=== PATIENT | male | born 1965 | race Caucasian/White ===

== ENCOUNTER 2017-12-16 09:04 | Emergency (ER) | payer OTHER ==
[~2017-12-16] VITALS: Ht 172.7 cm; Wt 63.5 kg
[~2017-12-16 09:04] MED LIST: ACET325; ALBIPROI INH; AZIT500 PO; Bactrim 400-801 EACH PO; Bactrim Ds Tab1 EACH PO; CEPH500 PO; Cleocin HCl300 MG PO; DIPATR PO; FLUC150A PO; IBUP800 PO; K-Dur 20 meq T20 MEQ PO; LIDO2TG30 TOP; LOPE2C PO; LORA1 PO; Naprosyn500 MG PO; Norco 5-325 Ta1 EACH PO; Norco 7.5-3251 EACH PO; PRED20 PO; Percocet 5-3251 EACH PO; Roxicodone5 MG PO; SULTRIDS PO; TIVICAY50 MG PO; Truvada Tablet1 EACH PO; Ultram50 MG PO; Vibramycin100 MG PO; Zofran4 MG PO; [UNRECOGNIZED DRUG - OTHER]; [UNRECOGNIZED DRUG - REMARK]
[2017-12-16] MEDS ORDERED: Norco 5-325 Ta1 EACH PO (09:30)
[2017-12-16] MEDS ORDERED: CEPH500 PO (09:30)
== END 2017-12-16 09:42 | disposition home or self-care (01) ==
LOC: ER 09:04
DX: S61.031A Puncture wound without foreign body of right thumb without damage to nail, initial encounter (principal); W45.8XXA Other foreign body or object entering through skin, initial encounter; Z88.5 Allergy status to narcotic agent; Z79.899 Other long term (current) drug therapy; F17.210 Nicotine dependence, cigarettes, uncomplicated
CPT/HCPCS: 99283

== ENCOUNTER 2018-06-10 23:13 | Inpatient (IN) | payer OTHER ==
[~2018-06-10] VITALS: Ht 172.7 cm; Wt 62.1 kg
[~2018-06-10 23:13] MED LIST changes: +CYCL10 PO; +Keflex500 MG PO
[2018-06-11 00:44] LABS: BASOPHILS ABSOLUTE AUTO 0.03 K/mm3 (0.00-0.23); BASOPHILS PERCENT AUTO 1 % (0-2); EOSINOPHILS PERCENT AUTO 2 % (0-6); Hematocrit 37.2 % (37.0-53.0); Hemoglobin 12.3 g/dL (13.5-17.5); IMMATURE GRAN ABSOLUTE AUTO 0.04 K/mm3 (0.00-0.10); IMMATURE GRAN PERCENT AUTO 1 % (0-1); LYMPHOCYTES ABSOLUTE AUTO 0.49 K/mm3 (0.84-5.20); LYMPHOCYTES PERCENT AUTO 8 % (21-46); MONOCYTES ABSOLUTE AUTO 0.29 K/mm3 (0.16-1.47); MONOCYTES PERCENT AUTO 5 % (4-13); Mean Corpuscular HGB 30.1 pg (26.0-34.0); Mean Corpuscular HGB Conc 33.1 g/dL (31.5-36.5); Mean Corpuscular Volume 91 fL (80-100); NEUTROPHILS ABSOLUTE AUTO 5.49 K/mm3 (1.96-9.15); NEUTROPHILS PERCENT AUTO 85 % (41-73); Platelet Count 211 K/mm3 (150-400); RDW Coefficient Variation 13.1 % (11.7-14.2); RDW Standard Deviation 43.9 fL (35.1-46.3); Red Blood Cell Count 4.08 M/mm3 (4.30-5.90); White Blood Cell Count 6.44 K/mm3 (4.00-11.30)
[2018-06-11 01:03] LABS: Alanine Aminotransfer (ALT/SGP 42 U/L (12-78); Albumin, Blood 2.5 g/dL (3.4-5.0); Albumin/Globulin Ratio 0.5 (0.8-1.8); Alk Phos 195 U/L (50-136); Anion Gap 6 mmol/L (6-16); Aspartate Aminotrans (AST/SGOT 179 U/L (12-37); Bilirubin, Total 0.6 mg/dL (0.1-1.0); Blood Urea Nitrogen 9 mg/dL (8-24); Bun/Creatinine Ratio 14.4 (12.0-20.0); CO2, Blood 27 mmol/L (21-32); Calcium, Blood 7.8 mg/dL (8.5-10.1); Chloride, Blood 104 mmol/L (98-108); Creatinine, Blood 0.63 mg/dL (0.60-1.20); Glomerular Filtration Rate >60 (60-); Glucose, Blood 90 mg/dL (70-99); Potassium, Blood 3.9 mmol/L (3.5-5.5); Sodium, Blood 137 mmol/L (136-145); Total Protein, Blood 7.5 g/dL (6.4-8.2)
[2018-06-11 01:27] LABS: Source, Urine Clean Catch
[2018-06-11 01:32] LABS: Bilirubin, Urine Neg (Neg); Blood, Urine Neg (Neg); Glucose Qualitative, Urine Neg (Neg); Ketones, Urine Neg (Neg); Leukocyte Esterase, Urine 1+ (Neg); Nitrite, Urine Neg (Neg); Protein, Urine Neg (Neg); Specific Gravity, Urine 1.005 (1.003-1.022); Urobilinogen, Urine 2+ (Normal)
[2018-06-11 01:49] LABS: Appearance, Urine Clear (Clear); Bacteria Not Seen /hpf; Color, Urine Yellow (P-Yellow); Mucus Light ({null, 0-Heavy}); Red Blood Cells, Urine Not Seen /hpf (0-2); Squamous Epithelial Cells Not Seen /hpf (Few); White Blood Cells, Urine Rare /hpf (0-5)
--- NOTE | 2018-06-11 02:18 | NUR ---
CALLED DR SANTANA REGARDING PATIENT'S 103.7 TEMP AND RESP OF 26, DR CROWE PT VISUALLY APPEARED STABLE TO HIM SO HE IS OK FOR MEDICAL FLOOR. SPOKE WITH RAND TACKER, SILVANA SHERIDAN, AND PRIMARY RN TAKING PATIENT INTO ROOM 343.
--- NOTE | 2018-06-11 05:00 | NUR ---
SHIFT SUMMARY PT WAS A NEW ADMIT, ARRIVING ON THE FLOOR AT 0339. PT WAS ADMITTED FOR A FEVER, AND IS ON AIRBORNE PRECAUTION FOR TB RULE OUT. PT IS A&O X 4, AND INDEPENDENT. ON ARRIVAL, PT WAS STILL RUNNING A FEVER AT 101.2, BUT REFUSED ICE PACKS. PT ALSO REFUSED TO TAKE OFF HIS STREET CLOTHES, AND SO A THOROUGH SKIN ASSESSMENT WAS UNABLE TO BE COMPLETED. PT'S BP WAS ALSO LOW ON ADMISSION AT 98/64. ALL OTHER VITALS STABLE. PT DENIED COMPLAINTS OF PAIN, NAUSEA OR SOB. NO OTHER ACUTE CHANGES IN PT CONDITION NOTED SINCE ARRIVAL. WILL CONTINUE TO MONITOR AND TREAT PER EMAR UNTIL HAND OFF TO DAY SHIFT.
[2018-06-11 07:26] LABS: U Amphetamine Screen DETECTED; U Barbituate Screen Not Detected; U Benzodiazapine Screen Not Detected; U Buprenorphine Screen DETECTED; U Cannabinoids Screen Not Detected; U Cocaine Screen Not Detected; U Methadone Screen Not Detected; U Methamphetamine Screen DETECTED; U Opiates Screen Not Detected; U Oxycodone Screen Not Detected; U Phencyclidine Screen Not Detected; U Propoxyphene Screen Not Detected
[2018-06-11 09:27] LABS: BASOPHILS ABSOLUTE AUTO 0.02 K/mm3 (0.00-0.23); BASOPHILS PERCENT AUTO 0 % (0-2); EOSINOPHILS ABSOLUTE AUTO 0.08 K/mm3 (0.00-0.68); EOSINOPHILS PERCENT AUTO 1 % (0-6); Hematocrit 36.9 % (37.0-53.0); IMMATURE GRAN ABSOLUTE AUTO 0.09 K/mm3 (0.00-0.10); IMMATURE GRAN PERCENT AUTO 1 % (0-1); LYMPHOCYTES ABSOLUTE AUTO 1.13 K/mm3 (0.84-5.20); LYMPHOCYTES PERCENT AUTO 13 % (21-46); MONOCYTES ABSOLUTE AUTO 0.53 K/mm3 (0.16-1.47); MONOCYTES PERCENT AUTO 6 % (4-13); Mean Corpuscular HGB 29.6 pg (26.0-34.0); Mean Corpuscular HGB Conc 32.5 g/dL (31.5-36.5); Mean Corpuscular Volume 91 fL (80-100); Mean Platelet Volume 9.6 fL (9.1-12.4); NEUTROPHILS ABSOLUTE AUTO 6.85 K/mm3 (1.96-9.15); NEUTROPHILS PERCENT AUTO 79 % (41-73); Platelet Count 171 K/mm3 (150-400); RDW Coefficient Variation 13.4 % (11.7-14.2); RDW Standard Deviation 45.2 fL (35.1-46.3); Red Blood Cell Count 4.06 M/mm3 (4.30-5.90)
[2018-06-11 09:41] LABS: Alanine Aminotransfer (ALT/SGP 36 U/L (12-78); Albumin, Blood 2.1 g/dL (3.4-5.0); Albumin/Globulin Ratio 0.5 (0.8-1.8); Alk Phos 156 U/L (50-136); Anion Gap 7 mmol/L (6-16); Aspartate Aminotrans (AST/SGOT 164 U/L (12-37); Bilirubin, Total 0.6 mg/dL (0.1-1.0); Blood Urea Nitrogen 7 mg/dL (8-24); Bun/Creatinine Ratio 11.9 (12.0-20.0); CO2, Blood 23 mmol/L (21-32); Calcium, Blood 7.5 mg/dL (8.5-10.1); Chloride, Blood 110 mmol/L (98-108); Creatinine, Blood 0.59 mg/dL (0.60-1.20); Globulin, Blood 4.5 g/dL (2.2-4.0); Glomerular Filtration Rate >60 (60-); Glucose, Blood 109 mg/dL (70-99); Potassium, Blood 3.5 mmol/L (3.5-5.5); Sodium, Blood 140 mmol/L (136-145); Total Protein, Blood 6.6 g/dL (6.4-8.2)
[2018-06-11 14:40] LABS: Adenovirus Not Detected (NOT DETECT); Bordetella pertussis Not Detected (NOT DETECT); Chlamydophila pneumoniae Not Detected (NOT DETECT); Coronavirus 229E Not Detected (NOT DETECT); Coronavirus HKU1 Not Detected (NOT DETECT); Coronavirus NL63 Not Detected (NOT DETECT); Coronavirus OC43 Not Detected (NOT DETECT); Human Metapneumovirus Not Detected (NOT DETECT); Influenza A/2009-H1 Not Detected (NOT DETECT); Influenza A/H1 Not Detected (NOT DETECT); Influenza A/H3 Not Detected (NOT DETECT); Influenza B Not Detected (NOT DETECT); Mycoplasma pneumoniae Not Detected (NOT DETECT); Parainfluenza Virus 1 Not Detected (NOT DETECT); Parainfluenza Virus 2 Not Detected (NOT DETECT); Parainfluenza Virus 3 Not Detected (NOT DETECT); Parainfluenza Virus 4 Not Detected (NOT DETECT); Respiratory Syncytial Virus Not Detected (NOT DETECT)
[2018-06-11 16:35] LABS: Human Rhinovirus/Enterovirus Detected (NOT DETECT); Influenza A Not Detected (NOT DETECT)
--- NOTE | 2018-06-11 18:46 | NUR ---
PT IS A/OX3, UP IND IN HIS ROOM, THE DENIED ANY PAIN THIS SHIFT, THE PT APPEARS TO BE BREATHING EASILY ON RA, THE WAS UP THIS EVENING X1 TO SMOKE, THE PT REMAINED AFEBRILE T/O THE DAY, WAS MOSTLY COOPERATIVE WITH ENCOURAGEMENT, CALL LIGHT IN REACH, BED IN THE LOW POSITION
--- NOTE | 2018-06-12 02:19 | NUR ---
PT REFUSING TO LET LAB DRAW MORNING LABS. VANCO TROUGH DUE TO BE DRAWN. PHARMACY AND HOSPITALIST NOTIFIED. HOSPITALIST WANTS LAB TO TRY DRAW PT LATER IN THE MORNING DURING MORNING ROUNDS. PHARMACY NOTIFIED OF THIS.
--- NOTE | 2018-06-12 05:31 | NUR ---
SHIFT SUMMARY PT CONTINUES TO REFUSE LAB DRAWS AND STATES HE DOESN'T WANT THE IV VANCOMYCIN IF HE HAS TO HAVE LABS DRAWN. PHARMACY NOTIFIED AND HOSPITALIST NOTIFIED, ORDERS RECEIVED. PT AFEBRILE DURING THE NIGHT, DENIES ANY C/O'S PAIN. HAS SLEPT FAIR. PT ALSO QUESTIONING WHY HE IS RECEIVING SO MANY IV ANTIBIOTICS, EDUCATED ON REASONS WHY. STILL REFUSES TO HAVE LABS DRAWN AFTER VERBAL EDUCATION. WILL CONTINUE TO MONITOR.
[2018-06-12] MEDS ORDERED: AZIT250 PO (14:55)
--- NOTE | 2018-06-12 15:16 | NUR ---
DISCHARGE NOTE PT'S IV DC'D WNL. HARDCOPY AND VERBAL DISCHARGE INSTRUCTIONS PROVIDED TO PT. PT INSTRUCTED TO FOLLOW UP WITH PCP WITHIN ONE WEEK, PT COULD NOT RECALL WHO HIS PCP WAS. PT'S DISCHARGE MEDICATION FAXED TO PREFERRED PHARMACY. PT HAD NO FURTHER QUESTIONS.
[2018-06-12 21:06] LABS: % CD 4 POS. LYMPH. 0.7 % (30.8-58.5); ABSOLUTE CD 4 HELPER 8 /uL (359-1519); BASOS 0 % (Not Estab.); EOS 1 % (Not Estab.); EOS (ABSOLUTE) 0.1 x10E3/uL (0.0-0.4); HEMATOCRIT 35.5 % (37.5-51.0); IMMATURE GRANULOCYTES 1 % (Not Estab.); LYMPHS 12 % (Not Estab.); LYMPHS (ABSOLUTE) 1.1 x10E3/uL (0.7-3.1); MCH 29.6 pg (26.6-33.0); MCHC 33.8 g/dL (31.5-35.7); MCV 87 fL (79-97); MONOCYTES 7 % (Not Estab.); MONOCYTES(ABSOLUTE) 0.6 x10E3/uL (0.1-0.9); NEUTROPHILS 79 % (Not Estab.); PLATELETS 179 x10E3/uL (150-379); RBC 4.06 x10E6/uL (4.14-5.80); RDW 14.2 % (12.3-15.4); WBC 8.7 x10E3/uL (3.4-10.8)
== END 2018-06-12 15:27 | disposition home or self-care (01) | DRG 975 ==
LOC: ER 23:13 → MEDS 06-11 01:36
PROVIDERS: Emergency Medicine; ADMIT Hospitalist
DX: B20 Human immunodeficiency virus [HIV] disease (principal); A41.9 Sepsis, unspecified organism; E46 Unspecified protein-calorie malnutrition; R64 Cachexia; B19.20 Unspecified viral hepatitis C without hepatic coma; F17.210 Nicotine dependence, cigarettes, uncomplicated; F11.10 Opioid abuse, uncomplicated; F15.10 Other stimulant abuse, uncomplicated; Z66 Do not resuscitate; R19.7 Diarrhea, unspecified; J20.8 Acute bronchitis due to other specified organisms; Z68.20 Body mass index [BMI] 20.0-20.9, adult
CPT/HCPCS: 36415; 71046; 80053; 81001; 83605; 83615; 84145; 85025; 86361; 87040; 87086; 87486; 87581; 87633; 87798; 96365; 96367; 99284-25; J1650; J2543; J3370; J7030; J7050; J7060

== ENCOUNTER 2018-07-17 23:05 | Emergency (ER) | payer OTHER ==
[~2018-07-17] VITALS: Ht 172.7 cm; Wt 59.0 kg
[~2018-07-17 23:05] MED LIST changes: +AZIT250 PO
[2018-07-18 00:57] LABS: BASOPHILS ABSOLUTE AUTO 0.03 K/mm3 (0.00-0.23); BASOPHILS PERCENT AUTO 0 % (0-2); EOSINOPHILS ABSOLUTE AUTO 0.01 K/mm3 (0.00-0.68); EOSINOPHILS PERCENT AUTO 0 % (0-6); Hematocrit 34.4 % (37.0-53.0); Hemoglobin 11.5 g/dL (13.5-17.5); IMMATURE GRAN ABSOLUTE AUTO 0.09 K/mm3 (0.00-0.10); IMMATURE GRAN PERCENT AUTO 1 % (0-1); LYMPHOCYTES ABSOLUTE AUTO 1.12 K/mm3 (0.84-5.20); LYMPHOCYTES PERCENT AUTO 16 % (21-46); MONOCYTES ABSOLUTE AUTO 0.46 K/mm3 (0.16-1.47); MONOCYTES PERCENT AUTO 7 % (4-13); Mean Corpuscular HGB 30.7 pg (26.0-34.0); Mean Corpuscular HGB Conc 33.4 g/dL (31.5-36.5); Mean Corpuscular Volume 92 fL (80-100); Mean Platelet Volume 8.9 fL (9.1-12.4); NEUTROPHILS ABSOLUTE AUTO 5.13 K/mm3 (1.96-9.15); NEUTROPHILS PERCENT AUTO 75 % (41-73); Platelet Count 295 K/mm3 (150-400); RDW Coefficient Variation 12.9 % (11.7-14.2); RDW Standard Deviation 43.2 fL (35.1-46.3); Red Blood Cell Count 3.75 M/mm3 (4.30-5.90); White Blood Cell Count 6.84 K/mm3 (4.00-11.30)
[2018-07-18 01:19] LABS: Alanine Aminotransfer (ALT/SGP 32 U/L (12-78); Albumin, Blood 2.3 g/dL (3.4-5.0); Albumin/Globulin Ratio 0.4 (0.8-1.8); Alk Phos 118 U/L (50-136); Anion Gap 7 mmol/L (6-16); Aspartate Aminotrans (AST/SGOT 141 U/L (12-37); Bilirubin, Total 1.3 mg/dL (0.1-1.0); Blood Urea Nitrogen 11 mg/dL (8-24); Bun/Creatinine Ratio 14.5 (12.0-20.0); CO2, Blood 26 mmol/L (21-32); Calcium, Blood 7.9 mg/dL (8.5-10.1); Chloride, Blood 99 mmol/L (98-108); Creatinine, Blood 0.76 mg/dL (0.60-1.20); Globulin, Blood 5.5 g/dL (2.2-4.0); Glomerular Filtration Rate >60 (60-); Glucose, Blood 109 mg/dL (70-99); Sodium, Blood 132 mmol/L (136-145); Total Protein, Blood 7.8 g/dL (6.4-8.2)
== END 2018-07-18 01:28 | disposition left against medical advice (07) ==
LOC: ER 23:05
PROVIDERS: Emergency Medicine
DX: B20 Human immunodeficiency virus [HIV] disease (principal); R50.9 Fever, unspecified; Z91.19 Patient's noncompliance with other medical treatment and regimen; Z88.5 Allergy status to narcotic agent; Z88.8 Allergy status to other drugs, medicaments and biological substances; F17.210 Nicotine dependence, cigarettes, uncomplicated
CPT/HCPCS: 36415; 80053; 83605; 85025; 87040; 87186; 96374; 99283-25; J3010

== ENCOUNTER 2018-07-20 09:14 | Inpatient (IN) | payer OTHER ==
[~2018-07-20] VITALS: Ht 172.7 cm; Wt 58.4 kg
[2018-07-20 14:22] LABS: BASOPHILS ABSOLUTE AUTO 0.03 K/mm3 (0.00-0.23); BASOPHILS PERCENT AUTO 1 % (0-2); EOSINOPHILS ABSOLUTE AUTO 0.03 K/mm3 (0.00-0.68); EOSINOPHILS PERCENT AUTO 1 % (0-6); Hematocrit 36.3 % (37.0-53.0); Hemoglobin 11.9 g/dL (13.5-17.5); IMMATURE GRAN ABSOLUTE AUTO 0.06 K/mm3 (0.00-0.10); IMMATURE GRAN PERCENT AUTO 1 % (0-1); LYMPHOCYTES ABSOLUTE AUTO 0.85 K/mm3 (0.84-5.20); LYMPHOCYTES PERCENT AUTO 16 % (21-46); MONOCYTES PERCENT AUTO 8 % (4-13); Mean Corpuscular HGB 30.2 pg (26.0-34.0); Mean Corpuscular HGB Conc 32.8 g/dL (31.5-36.5); Mean Corpuscular Volume 92 fL (80-100); NEUTROPHILS ABSOLUTE AUTO 3.97 K/mm3 (1.96-9.15); NEUTROPHILS PERCENT AUTO 74 % (41-73); Platelet Count 298 K/mm3 (150-400); RDW Standard Deviation 44.2 fL (35.1-46.3); Red Blood Cell Count 3.94 M/mm3 (4.30-5.90); White Blood Cell Count 5.34 K/mm3 (4.00-11.30)
[2018-07-20 15:07] LABS: Alanine Aminotransfer (ALT/SGP 26 U/L (12-78); Albumin, Blood 2.1 g/dL (3.4-5.0); Albumin/Globulin Ratio 0.4 (0.8-1.8); Alk Phos 113 U/L (50-136); Anion Gap 9 mmol/L (6-16); Aspartate Aminotrans (AST/SGOT 122 U/L (12-37); Bilirubin, Total 1.2 mg/dL (0.1-1.0); Blood Urea Nitrogen 7 mg/dL (8-24); Bun/Creatinine Ratio 11.1 (12.0-20.0); CO2, Blood 26 mmol/L (21-32); Calcium, Blood 7.8 mg/dL (8.5-10.1); Chloride, Blood 98 mmol/L (98-108); Creatinine, Blood 0.63 mg/dL (0.60-1.20); Globulin, Blood 5.6 g/dL (2.2-4.0); Glomerular Filtration Rate >60 (60-); Glucose, Blood 76 mg/dL (70-99); Potassium, Blood 3.8 mmol/L (3.5-5.5); Sodium, Blood 133 mmol/L (136-145); Total Protein, Blood 7.7 g/dL (6.4-8.2)
[2018-07-20] MEDS ORDERED: Bactrim Ds Tab1 EACH PO (16:28)
--- NOTE | 2018-07-20 19:14 | NUR ---
SHIFT SUMMARY: PT ADMIT FROM ED THIS SHIFT; ToA 1840; QUICK ADMIT COMPLETE. PT A&O; IRRITABLE; COOEPRATIVE WITH CARE SINCE ARRIVAL ON MEDICAL FLOOR. REPORT GIVEN TO ONCOMING RN.
--- NOTE | 2018-07-20 19:49 | NUR ---
07/20/180 PT WITH BLANKET OVER HIS HEAD AND BODY. BECAME ANNOYED WHEN RN VERIFIED ID BAND AND APPLIED "DNR" BAND. HE ACKNOWLEDGED HE WAS A "DNR AND WAS OKAY WITH ID APPLICATION. DID NOT REMEMBER WHAT MEDS HE TAKES DAILY. HE DECLINED TO ANSWER QUESTIONS ABOUT HISTORY AND ONLY ALLOWED A PARTIAL PHYSICAL ASSESSMENT. "I COULD LEAVE," HE STATED WHEN RN ATTEMPTED MORE INTERVENTIONS.
--- NOTE | 2018-07-21 02:13 | NUR ---
07/20/18 2300 PT REQUESTED PAIN MED BUT DECLINE IT WHEN INFORMED THAT MD HAS ORDERED TYLENOL FOR PAIN. "I'M LEAVING IN THE MORNING!"
--- NOTE | 2018-07-21 06:17 | NUR ---
07/21/18 0600 PT SLEEPING THIS AM AND MOST OF THIS SHIFT. VOIDING QS CLEAR YELLOW URINE. PT UNCOOPERATIVE WITH NURSING TASKS. SLIGHT FEVER THIS AM BUT HE HAD SEVERAL BLANKETS ON AND ROOM TEMP HIGH. LOWERED TEMP AND WILL RECHECK TEMP.
--- NOTE | 2018-07-21 10:12 | NUR ---
IN TO SEE PT WITH BLOOD CULTURES ORDERED. [facility] IN TO DRAW WITH PT REFUSING. SPOKE WITH PT ABOUT NEED TO DRAW BLOOD TO CHECK FOR INFECTION AND HE SAID IT WOULD HURT TO MUCH AND THAT HIS FOOT WAS FEELING BETTER. SPOKE WITH MD ON PHONE ABOUT REFUSAL. PT AD BEEN CUSSING AT [facility] AND EXPLAINED TO PT STAFF ARE HERE TO HELP HIM AND IF THEY ARE RESPECTFUL TO HIM HE IS EXPECTED TO BE RESPECTUFL TO THEM AND NOT BE CUSSING AT THEM.
--- NOTE | 2018-07-21 15:13 | NUR ---
PT has refused all ADLS today nurse notified
--- NOTE | 2018-07-21 16:55 | NUR ---
SHIFT SUMMARY PT WITH MINIMAL APPETITE. EATING ONLY BITES OF FOOD AND DRINKING FLUIDS. ASKING WHEN HE GETS TO LEAVE. EXPLAINED MD WAITING FOR RESULTS TO BLOOD CULTURES THAT PT FINALLY ALLOWED TO BE DONE. HAS BEEN QUIET IN ROOM AND TREATING STAFF APPROPRIATELY SINCE THIS MORNING. 1 PERSON ASSIST UP TO CHAIR. WHEELED SELF OUT TO SMOKE THIS AFTERNOON AFTER REQUESTING W/C. REPORTS R FOOT REMAINS VERY PAINFUL AND TENDER BUT DECLINES TYLENOL THAT IS OFFERED.
--- NOTE | 2018-07-22 03:51 | NUR ---
SHIFT SUMMARY PT OUT TO K DURING SHIFT REPORT. PT LATER RETURNED TO RM VIA W/C, SELF. TX SELF TO BED WATCHING TV. PT THEN UP TO SHOWER W/O HAVING IV WRAPPED. PT TOOK ANOTHER SHOWER AT , REQUESTING SOAP AND LINENS. PT VERY THIN. PER REPORT, PT HAS HAD A POOR APPETITE; HOWEVER, PT HAS CALLED MULTIPLE TIMES FOR ICE CREAM AND PUDDING EATING SEVERAL AT A TIME. PT OFFERED FOOD WITH NUTRITION, BUT PT REFUSED. PT ALSO OFFERED NICOTINE PATCH; REFUSING THAT WELL. DIET CHANGED TO SOFT BITE SIZE D/T PT NOT HAVING ANY TEETH. REFUSED ENSURE SHAKE. HX OF HIV, HEP C+, HEROIN, AND METH. SWELLING AND SLIGHT REDNESS TO R FOOT. PT REPORTED IT BEING MUCH BETTER THAN WHEN HE CAME IN. RESTING QUIETLY, WATCHING TV WHEN IN RM. CALL LT IN REACH.
--- NOTE | 2018-07-22 10:36 | NUR ---
PT LEFT AMA THE PT REPORTED EARLY THIS AM THAT HE WANTED TO LEAVE, THE MYSTERY SHOPPER SPOKE WITH THE PT AND DR. CONSTANTINO CAME UP AND SPOKE WITH THE PT, THE PT AGREED STAY AT THAT TIME, AROUND 1000 AM THE PT DECIDED THAT HE WAS GOIUNG TO LEAVE AGAIN, DR. CONSTANTINO WAS CALLED AGAIN INSTRUCTED, AND THE PT WAS GIVEN PERSCRIPTIONS FOR ANTIBIOTICS, PT SIGNED THE AMA PAPERS AND LEFT THE BUILDING
== END 2018-07-22 10:00 | disposition left against medical advice (07) | DRG 975 ==
LOC: ER 09:14 → MEDS 17:27
PROVIDERS: Emergency Medicine; ADMIT Internal Medicine
DX: B20 Human immunodeficiency virus [HIV] disease (principal); J13 Pneumonia due to Streptococcus pneumoniae; R78.81 Bacteremia; E87.1 Hypo-osmolality and hyponatremia; M79.671 Pain in right foot; B19.20 Unspecified viral hepatitis C without hepatic coma; F17.210 Nicotine dependence, cigarettes, uncomplicated; Z66 Do not resuscitate; F11.10 Opioid abuse, uncomplicated; F15.10 Other stimulant abuse, uncomplicated; Z91.14 Patient's other noncompliance with medication regimen; R45.1 Restlessness and agitation
CPT/HCPCS: 36415; 71046; 73630; 80053; 85025; 87040; 96365; 96372; 99285-25; J0696; J1885; J3010; J7030

== ENCOUNTER → 2018-12-08 | Outpatient (CLI) | payer OTHER ==
[2018-12-08 11:19] LABS: Appearance, Urine Turbid (Clear); Bilirubin, Urine Neg (Neg); Blood, Urine Neg (Neg); Color, Urine Yellow (P-Yellow); Glucose Qualitative, Urine Neg (Neg); Ketones, Urine Neg (Neg); Leukocyte Esterase, Urine 1+ (Neg); Nitrite, Urine Neg (Neg); Protein, Urine 1+ (Neg); Specific Gravity, Urine 1.025 (1.003-1.022); Urobilinogen, Urine 1+ (Normal)
[2018-12-08 12:12] LABS: Amorphous Heavy (0-Heavy); Bacteria Rare /hpf; Red Blood Cells, Urine 0-2 /hpf (0-2); Squamous Epithelial Cells Not Seen /hpf (Few); White Blood Cells, Urine 0-2 /hpf (0-5)
== END | disposition home or self-care (01) ==
LOC: LAB SHORT 09:02 → LAB UCHC 09:02
DX: R35.0 Frequency of micturition (principal)
CPT/HCPCS: 81001; 87086

== ENCOUNTER 2018-12-31 22:25 | Emergency (ER) | payer OTHER ==
[~2018-12-31] VITALS: Ht 172.7 cm; Wt 68.0 kg
== END 2019-01-01 06:04 | disposition home or self-care (01) ==
LOC: ER 22:25
DX: S30.0XXA Contusion of lower back and pelvis, initial encounter (principal); F17.210 Nicotine dependence, cigarettes, uncomplicated; Z86.19 Personal history of other infectious and parasitic diseases; Z88.5 Allergy status to narcotic agent; Z88.8 Allergy status to other drugs, medicaments and biological substances; V19.9XXA Pedal cyclist (driver) (passenger) injured in unspecified traffic accident, initial encounter
CPT/HCPCS: 51798; 72100; 99283-25; A9270

== ENCOUNTER 2019-04-03 14:32 | Emergency (ER) | payer OTHER ==
[~2019-04-03] VITALS: Ht 172.7 cm; Wt 54.4 kg
== END 2019-04-03 18:43 | disposition left against medical advice (07) ==
LOC: ER 14:32
DX: F11.129 Opioid abuse with intoxication, unspecified (principal); M62.830 Muscle spasm of back; M54.2 Cervicalgia; W10.9XXA Fall (on) (from) unspecified stairs and steps, initial encounter; Z88.5 Allergy status to narcotic agent; Z88.8 Allergy status to other drugs, medicaments and biological substances; F17.210 Nicotine dependence, cigarettes, uncomplicated
CPT/HCPCS: 71046; 72040; 96372; 99283-25; A9270-GY; J3010; L0160

== ENCOUNTER 2019-04-30 13:13 | Emergency (ER) | payer OTHER ==
[~2019-04-30] VITALS: Ht 165.1 cm; Wt 52.2 kg
[2019-04-30] MEDS ORDERED: HYDROCODONE-AC1 EAC1 PO (13:37)
== END 2019-04-30 15:51 | disposition home or self-care (01) ==
LOC: ER 13:13
DX: M54.12 Radiculopathy, cervical region (principal); M79.81 Nontraumatic hematoma of soft tissue; F19.10 Other psychoactive substance abuse, uncomplicated; B20 Human immunodeficiency virus [HIV] disease; F17.210 Nicotine dependence, cigarettes, uncomplicated; Z88.8 Allergy status to other drugs, medicaments and biological substances
CPT/HCPCS: 70450; 71046; 72125; 93005; 93010; 99284-25; J7070

== ENCOUNTER 2019-06-27 01:06 | Emergency (ER) | payer OTHER ==
[~2019-06-27] VITALS: Ht 172.7 cm; Wt 59.0 kg
[~2019-06-27 01:06] MED LIST changes: +HYDROCODONE-AC1 EAC1 PO
[2019-06-27] MEDS ORDERED: IBUP600 PO (01:38)
== END 2019-06-27 02:11 | disposition home or self-care (01) ==
LOC: ER 01:06
DX: T22.211A Burn of second degree of right forearm, initial encounter (principal); F17.210 Nicotine dependence, cigarettes, uncomplicated; Z88.8 Allergy status to other drugs, medicaments and biological substances; Z88.5 Allergy status to narcotic agent; X19.XXXA Contact with other heat and hot substances, initial encounter
CPT/HCPCS: 16025; 99283-25; A9270-GY

== ENCOUNTER 2019-08-08 16:11 | Inpatient (IN) | payer OTHER ==
[~2019-08-08] VITALS: Ht 172.7 cm; Wt 46.3 kg
[~2019-08-08 16:11] MED LIST changes: +IBUP600 PO
[2019-08-08 17:05] LABS: Hemoglobin 14.4 g/dL (13.5-17.5); Mean Corpuscular HGB 29.9 pg (26.0-34.0); Mean Corpuscular Volume 94 fL (80-100); Mean Platelet Volume 9.9 fL (9.1-12.4); Platelet Count 223 K/mm3 (150-400); RDW Coefficient Variation 13.6 % (11.7-14.2); RDW Standard Deviation 46.7 fL (35.1-46.3); Red Blood Cell Count 4.81 M/mm3 (4.30-5.90); White Blood Cell Count 3.82 K/mm3 (4.00-11.30)
[2019-08-08 17:23] LABS: Alanine Aminotransfer (ALT/SGP 36 U/L (12-78); Albumin, Blood 2.5 g/dL (3.4-5.0); Albumin/Globulin Ratio 0.4 (0.8-1.8); Alk Phos 147 U/L (50-136); Anion Gap 1 mmol/L (6-16); Aspartate Aminotrans (AST/SGOT 191 U/L (12-37); Bilirubin, Total 1.2 mg/dL (0.1-1.0); Blood Urea Nitrogen 31 mg/dL (8-24); Bun/Creatinine Ratio 36.8 (12.0-20.0); CO2, Blood 28 mmol/L (21-32); Calcium, Blood 8.7 mg/dL (8.5-10.1); Chloride, Blood 105 mmol/L (98-108); Creatinine, Blood 0.84 mg/dL (0.60-1.20); Ethanol (Alcohol), Blood, Med <3 mg/dL; Globulin, Blood 6.8 g/dL (2.2-4.0); Glomerular Filtration Rate >60 (60-); Glucose, Blood 61 mg/dL (70-99); Potassium, Blood 4.2 mmol/L (3.5-5.5); Sodium, Blood 134 mmol/L (136-145); Total Protein, Blood 9.3 g/dL (6.4-8.2)
[2019-08-08 17:30] LABS: BAND PERCENT MAN 7 % (0-8); BASOPHILS PERCENT MAN 0 % (0-2); EOSINOPHILS PERCENT MAN 0 % (0-6); LYMPHOCYTES ABSOLUTE MAN 0.68 K/mm3 (0.84-5.20); LYMPHOCYTES PERCENT MAN 18 % (21-46); MONOCYTES ABSOLUTE MAN 0.11 K/mm3 (0.16-1.47); MONOCYTES PERCENT MAN 3 % (4-13); NEUTROPHILS ABSOLUTE MAN 3.01 K/mm3 (1.96-9.15); SEG NEUTROPHILS PERCENT MAN 72 % (41-73); TOTAL CELLS COUNTED 100
[2019-08-08] MEDS ORDERED: METHADONE IN10 MG/ML PO (19:48)
[2019-08-08 20:50] LABS: Source, Urine Clean Catch
[2019-08-08 20:56] LABS: Appearance, Urine Clear (Clear); Bilirubin, Urine 1+ (Neg); Blood, Urine Neg (Neg); Color, Urine Orange (P-Yellow); Glucose Qualitative, Urine 1+ (Neg); Ketones, Urine Neg (Neg); Leukocyte Esterase, Urine 1+ (Neg); Nitrite, Urine Neg (Neg); Protein, Urine 2+ (Neg); Specific Gravity, Urine 1.015 (1.003-1.022); Urobilinogen, Urine 4+ (Normal)
[2019-08-08 21:02] LABS: Bacteria Many /hpf; Mucus Mod (0-Heavy); Red Blood Cells, Urine 0-2 /hpf (0-2); Squamous Epithelial Cells Not Seen /hpf (Few)
[2019-08-08 21:06] LABS: U Amphetamine Screen Not Detected; U Barbituate Screen Not Detected; U Benzodiazapine Screen Not Detected; U Cocaine Screen Not Detected; U Methadone Screen DETECTED; U Methamphetamine Screen Not Detected
[2019-08-08 21:07] LABS: U Buprenorphine Screen DETECTED; U Cannabinoids Screen Not Detected; U Opiates Screen Not Detected; U Oxycodone Screen Not Detected; U Phencyclidine Screen Not Detected; U Propoxyphene Screen Not Detected
[2019-08-08 22:37] LABS: International Normalized Ratio 1.24; Prothrombin Time Results 13.1 Sec (9.7-11.5)
--- NOTE | 2019-08-09 01:43 | NUR ---
PT ARRIVED TO PCU9 AT 2052. PT VERY SLEEPY AND MOSTLY NON VERBAL WITH MOANS AND OCCASIONAL YES/NO ANSWERS. WAS ABLE TO TELL BIRTHDAY. WOULD WAKE UP SPONTANEOUSLY AND TRACK STAFF WITH EYES. PT BECAME PROGRESSIVLY MORE LETHARGIC. CBG AT THAT TIME WAS 50, PT UNABLE TO TAKE PO SO GAVE 1/2 AMP OF D50 PER PROTOCOL. CBG RECHECK WAS 91. PT REMAINED LETHARGIC AND WAS NOT TRACKING STAFF WITH EYES, WOULD NOT ANSWER ANY QUESTIONS. CBG RECHECK WAS 61 EVEN THO PT STARTED ON D5-1/2 NS AT 75 ML/HR. NOTIFIED DR CONSTANTINO WHO GAVE ORDER TO INCREASE D5 DRIP TO 100 ML/HR AND TO TRANSFER PT TO ICU AFTER GIVING 0.4 MG OF NARCAN. NARCAN ADMINISTERED AND PT BECAME AWAKE AND ALERT. KNEW HE WAS AT THE HOSPITAL BUT WAS AGITATED AND MOSTLY NON COOPERATIVE. VSS THROUGH THE NIGHT AND O2 SATS REMAINED IN HIGH 90'S ON 2L O2 VIA NC. PT TRANSFERED TO ICU10, REPORT GIVEN TO CHRISTIANO MORFIN.
--- NOTE | 2019-08-09 02:09 | NUR ---
PATIENT ARRIVED TO ICU 10 VIA BED TRANSFER FROM PCU. PATIENT TRANSFER TO BED AND PLACED ON ICU MONITORING. PATIENT AWAKE AND SOMEWHAT COOPERATIVE. WHEN ASKED ORIENTATION QUESTIONS, PATIENT BECOMING DEFENSIVE AND ANGRY. OXYGEN 90% ON RA PLACED ON 2L/NC NOW BIOX 95% RESPIRATIONS EVEN AND UNLABORED BUT SHALLOW. PLAN TO CONTINUE TO MONITOR GLUCOSE CLOSELY AND WILL CONTINUE TO USE PRN NARCAN IF NEEDED.
--- NOTE | 2019-08-09 06:30 | NUR ---
SUMMARY PATIENT SLEEPING WHEN UNDISTURBED, AWAKENS TO SLIGHT STIMULI. CONTINUES TO BECOME ANGRY WITH TO MANY QUESTIONS. "JUST LEAVE ME ALONE" WHILE SLEEPING BIOX REMAINS 95-97% ON 2L/NC. D5 1/2NS @ 100/HR CONTINUES, CONTINUE TO WATCH CBG CLOSELY.
--- NOTE | 2019-08-09 07:15 | NUR ---
BEGINNING OF SHIFT Assumed care at 0700. Bedside report received from Stephy Morales RN. Pt on 2 LPM NC. SpO2 90% or greater. Pt responsive to verbal stimulus. Pt provides moans instead of words or sentences. Eyes open spontaneously, pt sleeps with eyes open per report. SR per monitor. D5 1/2 NS infusing per orders. Bed in lowest position. Call light in reach. Bed alarm on.
--- NOTE | 2019-08-09 13:54 | NUR ---
UPDATE Pt awake, voided 300 mL into urinal. Pt has loose, productive cough with tenacious green sputum. Notified provider. Orders given for sputum sample.
--- NOTE | 2019-08-09 14:45 | NUR ---
DR CHAN AT BEDSIDE At this time, pt responsive to verbal stimulus. Communicating with moans instead of words and sentences. Discussed plan of care. Discussed vitals and mentation. No new orders at this time. Provider states he will round on patient again today.
--- NOTE | 2019-08-09 17:29 | NUR ---
SUMMARY Pt has been somnolent for majority of shift, laying in bed with eyes open and not following commands or answering questions. Pt more alert when he had to pee. Able to void urine with assist from staff and answered questions for a short period of time afterwards. Responsive to pain, states "Ow!" when phelbotomist in room drawing blood. Pt has occasional cough that produces tenacious green sputum. Sample sent. Pt provided with tissues and trash can. Pt currently on 6 LPM NC. SpO2 91%. SR per monitor. BP stable. Clinimix infusing per orders. Pt had one visitor this shift, Lolita Jiménez, who claims to be his [employer] wrapper caser. Initially unable to give this person information on patient as she is not on facesheet and pt has not filled out consent for verbal release of information. Cece ALVARADO, from palliative care, attempted to reach contacts from face sheet Justice Gutierrez and Sandee Brand as the phone numbers listed do not connect to these people. At this time, Lolita is the only contact for this patient. Will continue to closely monitor until care handoff and bedside report with oncoming RN.
--- NOTE | 2019-08-09 19:15 | NUR ---
INCREASED O2 REQUIREMENTS / NARCAN / REFUSAL OF CARE SpO2 82% on 6 LPM NC. Pt switched to oxymizer. Flow increased to 15 LPM. SpO2 86-87%. This RN instructed pt to take deep breaths. No improvement in SpO2 noted. Narcan administered. Pt started yelling "What did you do to me" "Leave me alone" along with copious profanities. This RN educated pt on oxygen requirements and vital signs. Pt unreceptive and angry. Unable to obtain SpO2 as pt removed probe and would not put it back on. Pt also removed oxygen. This RN educated pt on need for oxygen. Pt stated "Leave me alone! Get out of my room!" This RN reiterated need for monitoring equipment, pt stated "LEAVE! I'm sick of hearing your voice." Respirations even and unlabored. Skin color pink- not dusky or cyanotic. Pt able to speak in 4-6 word sentences with ease. Report given to Barrett ALVARADO.
--- NOTE | 2019-08-09 19:43 | NUR ---
ASSUMED CARE OF PT AT 1900. REPORT RECEIVED AT DESK SECONDARY TO PT'S REFUSAL OF BEDSIDE REPORT OR HAVING ANY STAFF IN ROOM. DID OBSERVE PT TO NOTE HE WAS NOT IN ANY DISTRESS AT THIS TIME. WILL REVIEW CHART AND PLAN OF CARE. WILL REATTEMPT TO PROVIDE CARE.
--- NOTE | 2019-08-09 23:30 | NUR ---
DURING ASSESSMENT OF PT, WAS ABLE TO TALK PT TO PUTTING ON HIS OXYGEN AGAIN, AND OXIMETER. NOTED ON ROOM AIR PT'S SATURATIONS 72. PLACED OXYIMIZER AT 15 L/M WITH NONREBREATHER OVER THIS AND PT'S SATURATIONS IMPROVEDTO > 90 PERCENT. ALSO SPOT CHECK OF BLOOD GLUCOSE DONE REVEALED GLUCOSE OF 44. HALF AMP D50W GIVEN WITH RECHECK AT 62. ADDITIONAL HALF AMP GIVEN. PT NOTED ALSO TO HAVE TEMPORAL TEMPERATURE OF 103.8. LAB CALLED FOR BLOOD CULTURES, AND STAT CHEST XRAY. PT ONLY HAS ONE IV AT THIS TIME. IMFORMED PT THAT A POWER GLIDE WOULD BE ATTEMPTED.
--- NOTE | 2019-08-10 00:02 | NUR ---
PT RECEIVING FLUIDS PER SEPSIS PROTOCOL. LACTIC ACID LEVEL 2.3 ANIVAL NARAYANAN HAS BEEN AWARE OF BLOOD GLUCOSE, AND TEMPERATURE. HAS REVIEWED LABS AND CHEST XRAY. WILL CONTINUE TO MONITOR PT.
--- NOTE | 2019-08-10 06:30 | NUR ---
PT HAS IMPROVED WITH GLUCOSE LEVELS. OXYGEN REQUIREMENTS HAVE BEEN TITRATED DOWN TO 5 LITERS PER MINUTE PER OXYMIZER. PT HAS MOIST PRODUCTIVE COUGH WHEREAS HE SWALLOWS SPUTUM. HAS BEEN INCONTINENT TO URINE THAT IS SELIN IN COLOR. PT AWAKENS WITH STIMULI AND CURSES AT STAFF IN ROOM. NO S/S ADVERSE REACTIONS TO ANTIBIOTIC THERAPY. WILL CONTINUE TO MONITOR PT, AND WILL REPORT OFF TO ONCOMING RN.
--- NOTE | 2019-08-10 07:47 | NUR ---
BEGINNING OF SHIFT Assumed care at 0700. Bedside report received from Barrett ALVARADO. Pt on 5 LPM oxymizer. SpO2 90% or greater. SR per monitor. Linen change performed due to incontinent void of urine. Pt not speaking, providing moans, but able to follow some commands and assist with repositioning and linen change. No visitors in room at time of report. Bed in lowest position. Call light in reach. Bed alarm on.
--- NOTE | 2019-08-10 09:32 | NUR ---
UPDATE Pt repositioned. Pt awakes briefly. Asks "Can I have something to eat?". This RN educates pt that he is not alert enough to eat. Pt states "Whatever." and goes back to sleep.
--- NOTE | 2019-08-10 13:10 | NUR ---
DR CHAN IN TO SEE PATIENT Plan of care discussed. Pt is now DNR and medical floor status without telemetry.
--- NOTE | 2019-08-10 13:37 | NUR ---
Clinical Visit: Visit made to pt's room. He is laying in bed, appears fatigued. Opens eyes to voice cue. He denies pain, denies anxiety. Oriented to place. Asked pt if there is anyone he would like me to call and notify that he is in the hospital, he answers "no." Asked if he would like me to contact his sister in [place], he answers, "no." Instructed that some of the pt's friends have been in to see him. Instructed that Lolita case management manager form [employer] [place] was in to see him and concerned about him. He does agree to my contacting Lolita to update her and tell her that he is now awake and talking. Will make phone call to Lolita to update. He has no concerns at this time.
--- NOTE | 2019-08-10 14:51 | NUR ---
transfer Pt tp transfer to room 332. Telephone report given to Seng ALVARADO. Pt on room air at time of transfer.
--- NOTE | 2019-08-10 15:34 | NUR ---
PT ARRIVED TO THE MEDICAL FLOOR FROM THE ICU, A/OX3, PT WAS ABLE TO STAND WITH ASSIST TO THE BED, PT HAS A HARSH PRODUCTIVE COUGH, PT ON O2 @ 2L/MIN VIA NC AT THIS TIME, PT WAS ORIENTED TO THE ROOM LAYOUT AND CALL SYSTEM. TP WAS TRIALED ON CLEAR LIQUIDS DR. KUMAR ORDERED VERBALY AND DID WELL, THE PTS DIET WAS ADVANCED TO SOFT REGULAR, WILL CONTINUE TO MONITOR AND ASSESS FOR CHANGES
--- NOTE | 2019-08-10 18:04 | NUR ---
PT IS A/OX3, WHILE AWAKE PT CAME UP FROM THE ICU THIS AFTERNOON, PT HAS MOSTLY SLEPT, A DIET WAS ORDERED FOR THE PT PER HIS REQUEST HE SWALLOWS FINE BUT ALSO FALLS ASLEEP DURING HIS MEAL, PT HAS A HARSH PRODUCTIVE COUGH AT TIMES, PT IS ABLE TO STAND WITH 1 PERSON ASSIST, BED ALARM ON FOR SAFETY, CALL LIGHT IN REACH WILL CONTINUE TO MONITOR AND ASSESS FOR CHANGES
--- NOTE | 2019-08-11 00:07 | NUR ---
08/10/191999 PT RESTING HIGH FOWLERS; PT OPENS EYES TO LOUD VOICE AND HAS VERY WEAK NON PRODUCTIVE COUGH NOTED; DENIES PAIN OR NAUSEA.
[2019-08-11 05:01] LABS: BASOPHILS ABSOLUTE AUTO 0.03 K/mm3 (0.00-0.23); BASOPHILS PERCENT AUTO 1 % (0-2); Hematocrit 32.1 % (37.0-53.0); Hemoglobin 10.2 g/dL (13.5-17.5); LYMPHOCYTES ABSOLUTE AUTO 0.41 K/mm3 (0.84-5.20); LYMPHOCYTES PERCENT AUTO 9 % (21-46); MONOCYTES ABSOLUTE AUTO 0.28 K/mm3 (0.16-1.47); MONOCYTES PERCENT AUTO 6 % (4-13); Mean Corpuscular HGB 29.6 pg (26.0-34.0); Mean Corpuscular HGB Conc 31.8 g/dL (31.5-36.5); Mean Corpuscular Volume 93 fL (80-100); Platelet Count 205 K/mm3 (150-400); RDW Coefficient Variation 13.4 % (11.7-14.2); RDW Standard Deviation 45.1 fL (35.1-46.3); Red Blood Cell Count 3.45 M/mm3 (4.30-5.90); White Blood Cell Count 4.62 K/mm3 (4.00-11.30)
[2019-08-11 05:02] LABS: Base Excess Venous 5 mmol/L; Bicarbonate Venous 28.8 mmol/L (24.0-30.0); PCO2 Venous 35.5 mmHg (38-42); PO2 Venous 102 mmHg (38-42); pH Blood Venous 7.51 (7.34-7.37)
[2019-08-11 05:04] LABS: EOSINOPHILS ABSOLUTE AUTO 0.16 K/mm3 (0.00-0.68); EOSINOPHILS PERCENT AUTO 4 % (0-6); IMMATURE GRAN ABSOLUTE AUTO 0.68 K/mm3 (0.00-0.10); IMMATURE GRAN PERCENT AUTO 15 % (0-1); NEUTROPHILS ABSOLUTE AUTO 3.06 K/mm3 (1.96-9.15); NEUTROPHILS PERCENT AUTO 66 % (41-73)
[2019-08-11 05:22] LABS: Anion Gap 3 mmol/L (6-16); Blood Urea Nitrogen 23 mg/dL (8-24); Bun/Creatinine Ratio 35.9 (12.0-20.0); CO2, Blood 28 mmol/L (21-32); Calcium, Blood 7.6 mg/dL (8.5-10.1); Chloride, Blood 110 mmol/L (98-108); Creatinine, Blood 0.64 mg/dL (0.60-1.20); Glomerular Filtration Rate >60 (60-); Glucose, Blood 98 mg/dL (70-99); Potassium, Blood 3.8 mmol/L (3.5-5.5); Sodium, Blood 141 mmol/L (136-145)
--- NOTE | 2019-08-11 05:46 | NUR ---
SHIFT SUMMARY: 53 Y/O MALE RESTED COMFORTABLY IN BED ALL SHIFT; PT VERY LETHARGIC AT TIMES AND REQUIRED STAFF TO REPOSITION AND CHANGE ATTENDS; PT SPEECH GARBLED AT TIMES; SITTING HIGH FOWLERS WHILE WEARING O2 AT 2L/M PER NASAL CANNULA; PT APPEARS PAIN FREE WITH NO PAIN OR NAUSEA MEDS GIVEN; NO AGGRESSIVE BEHAVIOR WAS NOTED THIS SHIFT; ALERT AND ORIENTED X 2; BED ALARM APPLIED, BED LOW POSITION WITH CALL LIGHT AT SIDE.
[2019-08-11 14:11] LABS: % CD 3 POS. LYMPH. 72.8 % (57.5-86.2); % CD 4 POS. LYMPH. 0.7 % (30.8-58.5); ABSOLUTE CD 3 582 /uL (622-2402); ABSOLUTE CD 4 HELPER 6 /uL (359-1519); BASOS 1 % (Not Estab.); EOS 0 % (Not Estab.); HEMATOCRIT 29.5 % (37.5-51.0); HEMATOLOGY COMMENTS: Note: (.); HEMOGLOBIN 10.3 g/dL (13.0-17.7); IMMATURE GRANS (ABS) 0.1 x10E3/uL (0.0-0.1); IMMATURE GRANULOCYTES 2 % (Not Estab.); LYMPHS 13 % (Not Estab.); LYMPHS (ABSOLUTE) 0.8 x10E3/uL (0.7-3.1); MCH 29.5 pg (26.6-33.0); MCHC 34.9 g/dL (31.5-35.7); MCV 85 fL (79-97); MONOCYTES 4 % (Not Estab.); MONOCYTES(ABSOLUTE) 0.3 x10E3/uL (0.1-0.9); NEUTROPHILS 80 % (Not Estab.); NEUTROPHILS (ABSOLUTE) 4.7 x10E3/uL (1.4-7.0); PLATELETS 227 x10E3/uL (150-450); RBC 3.49 x10E6/uL (4.14-5.80); RDW 11.8 % (11.6-15.4); WBC 5.9 x10E3/uL (3.4-10.8)
--- NOTE | 2019-08-11 18:22 | NUR ---
NO ACUTE CHANGES NOTED THIS SHIFT, CLINIMIX CONTINUES AT 125ML/HR. PT EATING SMALL AMOUNTS AT MEALS, REMAINS MOSTLY NON VERBAL. WILL CONTINUE TO MONITOR AND REPORT TO ONCOMING RN
--- NOTE | 2019-08-12 05:11 | NUR ---
SHIFT SUMMARY: 53 Y/O MALE RESTED COMFORTABLY IN BED ALL SHIFT; SPEECH GARBLED WITH ONLY 1-2 WORDS SPOKEN AT TIMES; PT CURRENTLY NPO EXCEPT FOR ICE CHIPS; CLINIMAX INFUSING AT 125ML/HR VIA [place] POWER GLIDE; DENIES PAIN OR NAUSEA; ALERT TO PERSON ONLY; BED ALARM APPLIED, BED LOW POSITION WITH CALL LIGHT AT SIDE.
--- NOTE | 2019-08-12 13:18 | NUR ---
Ethics consultation request discussed with ordering provider. Given the initial complexity of the case, including the principals acute and chronic medical condition, issues revolving around early non-compliance, and concerns about the ambiguity of his placement disposition, Dr. Goodson asked me to take a proactive approach and review the situation to see if uneccessary or preventable factors could be identified and addressed prior to developing. Having evaluated the present chart notes, and dialogued somewhat extensively with palliative care, it appears that the principal has a safe dc plan underway, and is scheduled to be sent home today or tomorrow. Please see Dr Sanabria clinical entry for comments to that effect. Thank you for this consult. Ranjan Encarnacion Th.D.
--- NOTE | 2019-08-12 19:51 | NUR ---
PATIENT SLEPT THE MAJORITY OF THE DAY GETTING UP JUST TO VOID IN HIS URINAL. HE CONTINUES TO RECEIVE IV CLINIMIX AND IV ABX WITHOUT S/SX OF ADVERSE REATIONS NOTED OR REPORTED. NO COMPLAINTS OF PAIN OR DISCOMFORT. VITALS HAVE BEEN STABLE. REPORT GIVEN TO MALISSA Gasca RN WHO HAS ASSUMED THE CARE OF THE PATIENT.
--- NOTE | 2019-08-13 05:59 | NUR ---
SHIFT SUMMARY PT IS A 53 Y/O MALE, ADMITTED FOR ACUTE ENCEPHALOPATHY. HE IS A&O X 1-2. BED ALARM IN PLACE PT WILL NOT USE CALL LIGHT. PT IS RECEIVING CLINIMIX @ 125 ML/HR. HE WAS MEDICATED ONCE FOR ELBOW PAIN WITH PRN TYLENOL. NO COMPLAINTS OF NAUSEA OR SOB. PT SLEPT THROUGH MOST OF THE NIGHT, AND WAS FLAT AND WITHDRAWN WHEN AWAKE. VITAL SIGNS STABLE. NO OTHER ACUTE CHANGES IN PT CONDITION NOTED. WILL CONTINUE TO MONITOR AND TREAT PER EMAR UNTIL HAND OFF TO DAY SHIFT RN.
--- NOTE | 2019-08-13 09:50 | NUR ---
AMA DISCHARGE PT DISCHARGED AMA AFTER DR. SANTANA AND RN TALKED WITH PT ABOUT RISKS OF LEAVING AND THAT IT WOULD BE SAFER FOR HIM TO STAY. WHEN THIS RN ASKED PT WHY HE WANTED TO LEAVE, HE STATED "I JUST WANT TO GET OUT OF HERE." IV AND POWERGLIDE REMOVED WITHOUT DIFFICULTY. AMA FORM SIGNED BY PT. PT AMBULATED INDEPENDENTLY FROM ROOM TO ELEVATOR AND REPORTED HE WOULD BE TAKING THE BUS HOME.
== END 2019-08-13 09:50 | disposition left against medical advice (07) | DRG 974 ==
LOC: ER 16:11 → PCU 16:12 → ICUW 08-09 01:20 → MEDS 08-10 15:30
PROVIDERS: Internal Medicine; Physician Assistant; ADMIT Internal Medicine
DX: A41.9 Sepsis, unspecified organism (principal); G92 Toxic encephalopathy; B20 Human immunodeficiency virus [HIV] disease; E43 Unspecified severe protein-calorie malnutrition; J13 Pneumonia due to Streptococcus pneumoniae; E87.1 Hypo-osmolality and hyponatremia; E87.2 Acidosis; R64 Cachexia; Z68.1 Body mass index [BMI] 19.9 or less, adult; T40.3X1A Poisoning by methadone, accidental (unintentional), initial encounter; E16.2 Hypoglycemia, unspecified; B18.2 Chronic viral hepatitis C
CPT/HCPCS: 36415; 71045; 80048; 80053; 81001; 82803; 82947; 83605; 85025; 85610; 86359; 86361; 87040; 87070; 87077; 87147; 87185; 87186; 87205; 93005; 93010; 94760; 96361; 96372; 96374; 96376; 99285-25; A9270; G0378; G0480; J0456; J0696; J1650; J2310; J2405; J7030; J7042; J7050; J7799